=== PATIENT | male | born 1975 | race Caucasian/White ===

== ENCOUNTER 2017-08-11 12:19 | Emergency (ER) | payer OTHER ==
[~2017-08-11] VITALS: Ht 175.3 cm; Wt 77.1 kg
== END 2017-08-11 15:04 | disposition home or self-care (01) ==
LOC: ER 12:19
DX: J11.1 Influenza due to unidentified influenza virus with other respiratory manifestations (principal); B34.9 Viral infection, unspecified

== ENCOUNTER 2020-10-05 23:45 | Emergency (ER) | payer OTHER ==
[~2020-10-05] VITALS: Ht 175.3 cm; Wt 79.8 kg
[2020-10-06] MEDS ORDERED: KETO10TA2 PO (02:37)
[2020-10-06] MEDS ORDERED: CEFUROXIME500 MG PO (02:37)
== END 2020-10-06 02:58 | disposition home or self-care (01) ==
LOC: ER 23:45
DX: S61.022A Laceration with foreign body of left thumb without damage to nail, initial encounter (principal); W45.8XXA Other foreign body or object entering through skin, initial encounter; Y93.89 Activity, other specified; Y92.89 Other specified places as the place of occurrence of the external cause; Y99.8 Other external cause status